=== PATIENT | female | born 1990 | race Caucasian/White ===

== ENCOUNTER → 2021-08-21 12:14 | Outpatient (BNVA) | payer OTHER, SELFPAY | PROVIDERS: Family Provider Nurse Practitioner Family; PCP Nurse Practitioner Family; Visit Provider Family Medicine | DX: R53.83 Other fatigue (principal); Z83.49 Family history of other endocrine, nutritional and metabolic diseases | CPT/HCPCS: 80053; 82306; 82607; 83540; 84439; 84443; 84481; 85025; 86308; 86664; 86665 ==

== ENCOUNTER → 2022-05-15 14:05 | Outpatient (BNVA) | payer OTHER, SELFPAY | PROVIDERS: Family Provider Nurse Practitioner Family; PCP Nurse Practitioner Family; Visit Provider Family Medicine | DX: R53.83 Other fatigue (principal) | CPT/HCPCS: 80053; 84443 ==

== ENCOUNTER → 2022-10-19 12:00 | Outpatient (BNVA) | payer OTHER, SELFPAY | PROVIDERS: Family Provider Nurse Practitioner Family; PCP Nurse Practitioner Family; Visit Provider Nurse Practitioner Family | DX: J06.9 Acute upper respiratory infection, unspecified (principal); R05.9 Cough, unspecified; J32.0 Chronic maxillary sinusitis | CPT/HCPCS: 80053 ==

== ENCOUNTER → 2023-04-09 11:23 | Outpatient (BNVA) | payer OTHER, SELFPAY | PROVIDERS: Family Provider Nurse Practitioner Family; PCP Nurse Practitioner Family; Visit Provider Nurse Practitioner Family | DX: J06.9 Acute upper respiratory infection, unspecified (principal); R53.83 Other fatigue | CPT/HCPCS: 80053; 82607; 82746; 83550; 84443; 86664; 86665 ==

== ENCOUNTER → 2023-12-10 14:32 | Outpatient (BNVA) | payer OTHER, SELFPAY | PROVIDERS: Family Provider Nurse Practitioner Family; PCP Nurse Practitioner Family; Visit Provider Nurse Practitioner Family | DX: R05.9 Cough, unspecified (principal) | CPT/HCPCS: 87400 ==

== ENCOUNTER 2024-06-24 10:57 | Outpatient (CLI) | payer OTHER, SELFPAY ==
--- NOTE | 2024-06-24 11:04 | XRR_ITS ---
PROCEDURE INFORMATION: Exam: XR Chest Exam date and time: 06/24/2024 11:08 AM Age: 34 years old Clinical indication: Injury or trauma; Blunt trauma (contusions or hematomas); Injury details: Fall x 5 days ago, pain in RT side of chest and R ribs, difficulty catching breath; Prior surgery; Surgery date: 6+ months; Surgery type: Hysterectomy TECHNIQUE: Imaging protocol: Radiologic exam of the chest. Views: 2 views. COMPARISON: CR XR ribs RT 2V* [id number] 06/24/2024 11:08 AM FINDINGS: Lungs: The lungs are clear. Pleural spaces: No pneumothorax or pleural effusion. Heart/Mediastinum: Cardiomediastinal silhouette is unremarkable. Bones/joints: No acute osseous or soft tissue abnormality. XR/XR chest 2V* [id number] IMPRESSION: No acute cardiopulmonary abnormality.
--- NOTE | 2024-06-24 11:04 | XRR_ITS ---
PROCEDURE INFORMATION: Exam: XR Right Ribs Exam date and time: 06/24/2024 11:08 AM Age: 34 years old Clinical indication: Injury or trauma; Rib area; Blunt trauma (contusions or hematomas); Injury details: Fall x 5 days ago, pain in RT side of chest and R ribs, difficulty catching breath; Prior surgery; Surgery date: 6+ months; Surgery type: Hysterectomy TECHNIQUE: Imaging protocol: Radiologic exam of the right ribs. Views: 2 views. COMPARISON: CR XR chest 2V* [id number] 06/24/2024 11:08 AM FINDINGS: Bones/joints: No acute fracture or malalignment. No worrisome lytic or blastic osseous lesion. No appreciable cortical erosion or periosteal reaction. No joint effusion. No soft tissue abnormality. Soft tissues: See Bones/joints finding. XR/XR ribs RT 2V* [id number] IMPRESSION: No acute rib fracture.
== END 2024-06-24 10:58 | disposition home or self-care (01) ==
LOC: RAD 10:58
PROVIDERS: Family Provider Nurse Practitioner Family; PCP Nurse Practitioner Family; Visit Provider Nurse Practitioner Family
DX: R07.89 Other chest pain (principal); R07.81 Pleurodynia
CPT/HCPCS: 71046; 71100